=== PATIENT | male | born 1980 | race Caucasian/White ===

== ENCOUNTER 2023-10-18 09:27 | Outpatient (CLI) | payer MEDICAID | END 2023-10-18 23:59 | disposition home or self-care (01) | LOC: RAD 09:27 | PROVIDERS: ATTEND General Practice | DX: R22.32 Localized swelling, mass and lump, left upper limb (principal) | CPT/HCPCS: 73140 ==

== ENCOUNTER 2024-05-22 10:22 | Outpatient (CLI) | payer MEDICAID | END 2024-05-22 23:59 | disposition home or self-care (01) | LOC: MRI02 10:22 | PROVIDERS: ATTEND Physician Assistant Surgical | DX: R22.32 Localized swelling, mass and lump, left upper limb (principal); M79.645 Pain in left finger(s) | CPT/HCPCS: 73218 ==